=== PATIENT | male | born 1985 | race Caucasian/White ===

== ENCOUNTER 2021-04-10 18:58 | Emergency (ER) | payer OTHER | END 2021-04-10 20:50 | disposition home or self-care (01) | LOC: ER1 18:58 | DX: R07.89 Other chest pain (principal); Z88.0 Allergy status to penicillin | CPT/HCPCS: 99284 ==

== ENCOUNTER → 2021-10-24 | Outpatient (CLI) | payer OTHER | LOC: EMI 10-22 13:00 | DX: M23.51 Chronic instability of knee, right knee (principal) | CPT/HCPCS: 73721 ==